=== PATIENT | female | born 1970 | race Caucasian/White ===

== ENCOUNTER 2019-08-03 06:57 | Day surgery (SDC) | payer OTHER ==
[2019-08-02 18:23] VITALS: BMI 27.3
[2019-08-03] MEDS ORDERED: PROPOFOL 20 ML ONE (09:38)
[2019-08-03] MEDS ORDERED: MIDAZOLAM HCL 2 MG/2 ML SINGLE DOSE VIAL ONE (09:38)
[2019-08-03] MEDS ORDERED: LIDOCAINE HCL/PF 2% SDV 5ML VIAL ONE (09:38)
[2019-08-03] MEDS ORDERED: DEXAMETHASONE SOD PHOSPHATE 4 MG/1 ML VIAL ONE (10:02)
[2019-08-03] MEDS ORDERED: IBUPROFEN 800 MG/8 ML IJ IVPB ONE (10:04)
[2019-08-03] MEDS ORDERED: oxyCODONE HCL 5 MG TABLET PO PRN (10:44)
[2019-08-03] MEDS ORDERED: ONDANSETRON 4 MG/2 ML VIAL IVPUSH PRN (10:44)
[2019-08-03] MEDS ORDERED: LACTATED RINGERS SOLUTION 1,000 ML IV SCH (10:45)
[2019-08-03 12:18] VITALS: BP 147/84; PULSE 67; TEMP 97.6
== END 2019-08-03 12:34 | disposition home or self-care (01) ==
LOC: JASU-SURG 06:57
PROVIDERS: ATTEND Obstetrics & Gynecology
PROC: 0UDB8ZX Extraction of Endometrium, Via Natural or Artificial Opening Endoscopic, Diagnostic (ICD-10-PCS; principal; 2019-08-03 09:00)
DX: N84.0 Polyp of corpus uteri (principal); I10 Essential (primary) hypertension
CPT/HCPCS: 88305-TC; 94760